=== PATIENT | female | born 1940 ===

== ENCOUNTER 2017-06-13 08:46 | Outpatient (CLI) | payer OTHER | END 2017-06-13 08:54 | disposition home or self-care (01) | LOC: NUCLEAR 08:46 | DX: R07.89 Other chest pain (principal) ==

== ENCOUNTER 2017-07-23 14:07 | Outpatient (CLI) | payer OTHER | END 2017-07-23 14:13 | disposition home or self-care (01) | LOC: NUCLEAR 14:07 | DX: I82.B12 Acute embolism and thrombosis of left subclavian vein (principal) ==